=== PATIENT | male | born 1965 | race Caucasian/White ===

== ENCOUNTER 2024-07-18 18:55 | Emergency (ER) | payer OTHER, SELFPAY ==
[2024-07-18 18:57] VITALS: BP 146/89
[2024-07-18 19:09] LABS: % Basophils 0.4 % (0-2); % Eosinophils 0.6 % (0-6); % Immature Granulocytes 0.6 % (0-0.5); % Lymphocytes 23.2 % (20.5-51.1); % Monocytes 9.8 % (1.7-9.3); % Neutrophils 65.4 % (42.2-75.2); Absolute Lymphocytes 1.6 10^3/uL (1.2-3.4); Absolute Monocytes 0.7 10^3/uL (0.1-0.6); Absolute Neutrophils 4.5 10^3/uL (1.4-6.5); Hematocrit 51.5 % (39.0-52.0); Hemoglobin 17.9 g/dL (13.0-18.0); Mean Corp Hgb Conc. 34.8 g/dL (33.0-37.0); Mean Corpuscular Hgb 30.9 pg (27.0-31.0); Mean Corpuscular Volume 88.8 fL (80.0-94.0); Mean Platelet Volume 9.7 fL (7.4-10.4); Nucleated Red Blood Cells % 0 % (-); Platelet Count 182 10^3/uL (130-400); White Blood Cell Count 6.9 10^3/uL (4.8-10.8)
[2024-07-18 19:29] LABS: ALT (SGPT) 30 U/L (0-50); AST (SGOT) 28 U/L (17-59); Albumin 4.9 g/dl (3.5-5.0); Alkaline Phosphatase 42 U/L (38-126); Blood Urea Nitrogen 29 mg/dl (9-20); Calcium 9.7 mg/dl (8.4-10.2); Carbon Dioxide 25 mmol/L (22-30); Chloride 101 mmol/L (98-107); Glucose 139 mg/dl (70-99); Potassium 4.2 mmol/L (3.5-5.1); Sodium 138 mmol/L (135-145); Total Bilirubin 1.2 mg/dl (0.2-1.3); Total Protein 7.6 g/dl (6.3-8.2); eGFR > 60.00
--- NOTE | 2024-07-18 20:21 | ED.GENMED ---
History of Present Illness
General
Chief Complaint: Abdominal Pain
Time Seen by Provider: 07/18/24 20:21
History of Present Illness
History of Present Illness:
TIME OF INITIAL ENCOUNTER: 8:20 PM
HPI: The patient presents due to ventral abdominal pain. He has a history of umbilical hernia repair several years ago at [facility]. He has not been vomiting. The pain was more severe earlier but now is somewhat improved. He has had some
changes in his stool habits but did have 2 normal bowel movements today.
EXAM:
GENERAL: Well appearing in no distress
HEENT: Moist oral mucosa
CARDIOVASCULAR: No murmurs, normal heart rate, regular rhythm, No chest wall tenderness
PULMONARY: No respiratory distress, breath sounds are clear and equal
ABDOMEN: Soft with no peritoneal signs, no tenderness, when the patient flexes forward a soft ventral hernia is noted however this is soft, there is no evidence for incarcerated/strangulated hernia
NEUROLOGIC: Excellent strength all extremities, no coordination deficits
PSYCHIATRIC: Appropriate mental status, normal insight and judgement
EXTREMITIES: Nontender, no edema, moves all extremities equally
SKIN: No rash, no lesions
NUMBER AND COMPLEXITY OF PROBLEMS ADDRESSED AT THE ENCOUNTER
� Chronic conditions affecting care: High blood pressure
� Acute Exacerbation and/or Progression of Chronic Illness: This is an acute problem
� Differential Diagnosis includes: Incisional hernia, ventral wall hernia, no evidence for incarcerated hernia on exam, GERD
AMOUNT AND/OR COMPLEXITY OF DATA TO BE REVIEWED AND ANALYZED
� I performed an independent evaluation of and my interpretation is:
EKG:
CT: I personally viewed CT imaging and agree with radiologist interpretation there is no evidence for ventral wall hernia
X-rays:
Laboratory Studies: White count 6.9, hemoglobin normal, chemistries unremarkable
Other:
� Review of other/old records: The patient was treated for an incarcerated umbilical hernia by Dr. Lopez here in July 2018
� Clinical information was obtained by an independent historian: I spoke to the at bedside
� Prescriptions/Medications Considered but not given:
� Further testing considered but not performed:
RISK OF COMPLICATIONS AND/OR MORBIDITY OR MORTALITY OF PATIENT MANAGEMENT
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
� Discussion with other providers:
� Escalation of care including admission/observation vs risk of discharge considered: No clear indication for admission to the hospital.
ANY OTHER UPDATES:
11 PM: I reassessed patient. CT imaging reassuring. Labs unremarkable. I have given the contact information for a local surgeon to follow-up with.
Past History
Past History
ED Past Medical History: Other (Back pain) and Other (umbilical, hernia, hypertension)
ED Past Surgical History: Orthopedic
Social History
Tobacco: Non-smoker
Alcohol: None
Personal:
Living: with family
Employment: Employed
Family History
Family History: Negative Diabetes, Hypertension or CAD
Phy Exam
Physical Exam
Physical Exam:
See HPI
Course
Orders/Labs/Results
Orders:
Orders
07/18/24 19:02
Complete Blood Count/With Diff Urgent
Comprehensive Metabolic Panel Urgent
07/18/24 20:28
CT Abd/pelvis W Iv Cont Urgent
Comment:
Reason For Exam: ventral abd pain; prior umb hernia repair
Abnormal Lab Results
07/18/24
19:02
Absolute Monos (auto) 0.7 H 10^3/uL
(0.1-0.6)
Immature Gran % 0.6 H %
(0-0.5)
Monocytes % 9.8 H %
(1.7-9.3)
BUN 29 H mg/dl
(9-20)
Glucose 139 H mg/dl
(70-99)
07/18/24 19:02
07/18/24 19:02
Vital Signs
Initial and Last Documented VS:
Initial Vital Signs
Temp Pulse Resp BP Pulse Ox
36.6 C 86 16 146/89 98
07/18/24 18:57 07/18/24 18:57 07/18/24 18:57 07/18/24 18:57 07/18/24 18:57
Last Documented Vital Signs
Temp Pulse Resp BP Pulse Ox
36.6 C 69 20 151/96 97
07/18/24 18:57 07/18/24 20:45 07/18/24 20:50 07/18/24 20:24 07/18/24 20:45
*Critical Care Note
Total Time (30-74mins, 75-104mins- exclusive of procedures): Not Applicable
ED Attending Note
-
Portions of this chart may have been created with voice recognition software.� Occasional wrong word or��sound alike� substitutions may have occurred due to the inherent limitations of voice recognition software.
Discharge Plan
Departure
Patient Disposition: Home (Routine Discharge)
Date of Disposition: 07/18/24
Time of Disposition: 23:04
Patient with high blood pressure during this ER visit?: Yes
Discharge Problem:
Abdominal pain
Prescriptions:
No Action
amlodipine [Norvasc] 5 MG tablet
5 mg PO DAILY
terbinafine HCl 250 MG tablet
250 mg PO FR
[id number] [Hari Multivitamin For Men] 1 EACH tablet
1 ea PO DAILY
Referrals:
Yamil Walls MD [Active] - Follow up in 10 days
Evelio Jacobo MD [Family Provider] -
Activity Restrictions/Additional Instructions:
We do not see any sign of a ventral wall hernia. Blood work normal. I have given you the contact information for a local surgeon, Dr. Walls.
Interventions
Interventions:
*Risk Screen - Suicide Last Done: 07/18/24 18:59
*General Assessment Last Done: 07/18/24 20:51
*Neglect/Abuse Screening Last Done: 07/18/24 18:59
*ED COVID-19 Vaccine History Last Done: 07/18/24 20:51
HS-Pbvjix-Nvmvwvmyya Assessment Last Done: 07/18/24 20:50
Discharge Date and Time
Print Language: JAPANESE
[2024-07-18 20:24] VITALS: BP 151/96
== END 2024-07-18 23:15 | disposition home or self-care (01) ==
LOC: EMR 18:55
PROVIDERS: Student in an Organized Health Care Education/Training Program; EMERGENCY PHYSICIAN Emergency Medicine; FAMILY PHYSICIAN Family Medicine
DX: R10.9 Unspecified abdominal pain (principal); R03.0 Elevated blood-pressure reading, without diagnosis of hypertension
CPT/HCPCS: 99285; 74177; 80053; 85025; Q9967

== ENCOUNTER → 2025-06-12 09:09 | Outpatient (REF) | payer OTHER, SELFPAY ==
[2025-06-12 09:53] LABS: Hematocrit 55.4 % (39.0-52.0); Hemoglobin 18.7 g/dL (13.0-18.0); Mean Corp Hgb Conc. 33.8 g/dL (33.0-37.0); Mean Corpuscular Volume 87.8 fL (80.0-94.0); Nucleated Red Blood Cells % 0 % (-); Platelet Count 189 10^3/uL (130-400); Red Cell Dist. Width 13.2 % (11.5-14.5)
[2025-06-12 10:21] LABS: ALT (SGPT) 32 U/L (0-50); AST (SGOT) 22 U/L (17-59); Albumin 4.8 g/dl (3.5-5.0); Alkaline Phosphatase 41 U/L (38-126); Amylase 49 U/L (30-110); Blood Urea Nitrogen 21 mg/dl (9-20); Calcium 9.9 mg/dl (8.4-10.2); Carbon Dioxide 31 mmol/L (22-30); Chloride 102 mmol/L (98-107); Glucose 161 mg/dl (70-99); Lipase 99 U/L (23-300); Potassium 4.4 mmol/L (3.5-5.1); Sodium 138 mmol/L (135-145); Total Protein 7.9 g/dl (6.3-8.2); eGFR > 60.00
== END ==
LOC: RAD 09:09
PROVIDERS: ATTENDING PHYSICIAN Family Medicine
DX: R10.32 Left lower quadrant pain (principal); K21.9 Gastro-esophageal reflux disease without esophagitis; I10 Essential (primary) hypertension; E11.9 Type 2 diabetes mellitus without complications; Z00.00 Encounter for general adult medical examination without abnormal findings; F45.8 Other somatoform disorders; R73.09 Other abnormal glucose; M79.89 Other specified soft tissue disorders; R73.03 Prediabetes
CPT/HCPCS: 36415; 74177; 80053; 82150; 83690; 85025; Q9967